=== PATIENT | male | born 1960 | race Caucasian/White ===

== ENCOUNTER 2021-02-25 11:15 | Emergency (ER) | payer OTHER ==
[~2021-02-25] VITALS: Ht 172.7 cm; Wt 91.2 kg
[2021-02-25 11:20] VITALS: BP 145/78
--- NOTE | 2021-02-25 11:26 | NUR ---
Patient ambulated to room 9 with a steady gait
--- NOTE | 2021-02-25 11:27 | NUR ---
Patient is a 60 y/o male c/c (L) eye floaters x3 days. Patient denies pain, injury or trauma to the eye. Patient has a history of (R) eye retinal detachment. Patient denies chest pain, SOB, fever, n/v/d. PMH: Headaches, pre diabetes Meds: None, per patient Allergies: None, per patient
--- NOTE | 2021-02-25 11:45 | NUR ---
ER MD Bhardwaj at the bed side evaluating patient
[2021-02-25 12:25] VITALS: BP 145/78
--- NOTE | 2021-02-25 12:25 | NUR ---
Patient discharged with v/s stable. Written and verbal after care instructions given and explained. Patient verbalized understanding. Ambulatory with steady gait. All questions addressed prior to discharge. Advised to follow up with [facility] with an appointment at 1500 today.
== END 2021-02-25 12:25 | disposition home or self-care (01) ==
LOC: MED 11:15
DX: H33.002 Unspecified retinal detachment with retinal break, left eye (principal)
CPT/HCPCS: 99284

== ENCOUNTER 2021-03-04 16:53 | Emergency (ER) | payer OTHER ==
[~2021-03-04] VITALS: Ht 154.9 cm; Wt 92.1 kg
[2021-03-04 17:03] VITALS: BP 159/108
--- NOTE | 2021-03-04 17:10 | NUR ---
60 YO M BIB SELF FOR C/O OF N/V X1, AND 08/22 SOL X1 DAY ASSOCIATED WITH HIGH BLOOD PRESSURE.PT STATES THAT HE HAS NEVER HAD HTN BUT TODAY HIS BP WAS REALLY HIGH. BP 142/91 AT BEDSIDE. PT REPORTS THAT HE HAD RETINAL DETACHMENT SURGERY ON MONDAY, STATES "I STILL HAVE GAS BUBBLE ON MY EYE AND AM UNABLE TO LAY FLAT." ERMD MADE AWARE. PT PLACED ON METAL DEALER/PULSE OX. BED LOCKED AND IN LOWEST POSITION. SIDE RAILS X1. MEDHX: RETINAL DETACHMENT
[2021-03-04] MEDS ORDERED: ONDANSETRON 4 MG/2 ML VIAL IVP ONE (17:35)
[2021-03-04] MEDS ORDERED: METOPROLOL 5 MG/5 ML VIAL IVP ONE (17:35)
[2021-03-04 17:51] LABS: BASOPHILS # (AUTO) 0.1 K/uL (0.00-0.22); BASOPHILS % (AUTO) 0.9 % (0.0-2.0); EOSINOPHILS % (AUTO) 0.2 % (0.0-4.0); HEMATOCRIT 45.6 % (36-52); HEMOGLOBIN 15.5 g/dL (12.0-18.0); LYMPHOCYTES # (AUTO) 1.6 K/uL (2.0-11.5); LYMPHOCYTES % (AUTO) 16.5 % (20.5-51.1); MEAN CORPUSCULAR HEMOGLOBIN 32 pg (27-31); MEAN CORPUSCULAR HGB CONC 34 g/dL (33-37); MEAN CORPUSCULAR VOLUME 95.4 fL (80-94); MONOCYTES # (AUTO) 0.4 K/uL (0.8-1.0); MONOCYTES % (AUTO) 4.3 % (1.7-9.3); NEUTROPHILS # (AUTO) 7.6 K/uL (1.8-7.7); NEUTROPHILS % (AUTO) 78.1 % (42.2-75.2); PLATELET COUNT (AUTO) 221 K/uL (140-450); RED BLOOD CELL COUNT(AUTO) 4.78 MIL/uL (4.20-6.10); RED CELL DISTRIBUTION WIDTH 13.3 % (11.6-13.7); WHITE BLOOD COUNT (AUTO) 9.8 K/uL (4.8-10.8)
--- NOTE | 2021-03-04 18:02 | NUR ---
ERMD AT BEDSIDE EVALUATING PT
[2021-03-04 18:08] LABS: ALBUMIN 3.8 g/dL (3.4-5.0); CARBON DIOXIDE 26.9 mmol/L (21-32); CREATININE 0.8 mg/dL (0.6-1.3); POTASSIUM 3.9 mmol/L (3.5-5.1); TOTAL BILIRUBIN 0.6 mg/dL (0.0-1.0)
[2021-03-04] MEDS ORDERED: MORPHINE SULFATE 4 MG/ML SYR IVP ONE ×2 (18:10→19:55)
[2021-03-04] MEDS ORDERED: NACL 0.9% 1,000 ML IV ONE (19:05)
--- NOTE | 2021-03-04 19:15 | NUR ---
REPORT RECEIVED BY KIM SOUZA FOR CONTINUITY OF CARE
--- NOTE | 2021-03-04 19:16 | NUR ---
REPORT GIVEN TO KIM WALKER. TRANSFER OF CARE AT THIS TIME.
--- NOTE | 2021-03-04 19:20 | NUR ---
pt laying on right side semi fowlers looking down due to upcoming surgery. pt comfortable, vss, pain has decreased to 3/10, IV on left forearm thats patent no redness noted, [id number], at bedside.
--- NOTE | 2021-03-04 19:52 | NUR ---
pt asking for pain medication due to headache going up to a 02/20. md notified
[2021-03-04] MEDS ORDERED: ONDANSETRON 4 MG ODT PO ONE (21:00)
[2021-03-04] MEDS ORDERED: ACET-8386 PO (21:10)
[2021-03-04] MEDS ORDERED: HYDR12.51 PO (21:10)
[2021-03-04] MEDS ORDERED: ONDA-24 SL (21:10)
[2021-03-04 21:24] VITALS: BP 133/84
--- NOTE | 2021-03-04 21:25 | NUR ---
Patient discharged with v/s stable. PAIN IS AT A 3/10 TOLERABLE FOR PATIENT. Written and verbal after care instructions given and explained. Patient alert, oriented and verbalized understanding of instructions. Ambulatory with steady gait. All questions addressed prior to discharge. ID band removed. Patient advised to follow up with PMD. Rx of HYDROCODON-ACETAMINOPHEN 5-325, HYDROCHLOROTHIAZIDE, AND ONDANSETRON given. Patient educated on indication of medication including possible reaction and side effects. Opportunity to ask questions provided and answered.
== END 2021-03-04 21:25 | disposition home or self-care (01) ==
LOC: MED 16:53
DX: I10 Essential (primary) hypertension (principal); R51.9 Headache, unspecified; Z79.899 Other long term (current) drug therapy
CPT/HCPCS: 36415; 80053; 84484; 85025; 96361; 96374; 96375; 96376; 99284; J2270; J2405; J7030; Q0162

== ENCOUNTER 2022-12-13 02:27 | Emergency (ER) | payer OTHER ==
[~2022-12-13] VITALS: Ht 170.2 cm; Wt 93.9 kg
[~2022-12-13 02:27] MED LIST: ACET-8905 PO; HYDR12.51 PO; ONDA-188 SL
[2022-12-13 02:33] VITALS: BP 157/85
--- NOTE | 2022-12-13 02:41 | NUR ---
Patient taken to bed 12.
--- NOTE | 2022-12-13 02:46 | NUR ---
pt has pain right above the hip 05/22. alert and oriented x 4. follow commands. ambulatory
--- NOTE | 2022-12-13 02:49 | NUR ---
Dr. Tinajero examining patient.
[2022-12-13] MEDS ORDERED: KETOROLAC 15 MG/ML VIAL IVP ONE (02:55)
[2022-12-13 03:03] LABS: BASOPHILS # (AUTO) 0.3 K/uL (0.00-0.22); BASOPHILS % (AUTO) 2.6 % (0.0-2.0); EOSINOPHILS # (AUTO) 0.1 K/uL (0-0.4); EOSINOPHILS % (AUTO) 0.5 % (0.0-4.0); HEMATOCRIT 41.9 % (36-52); HEMOGLOBIN 14.8 g/dL (12.0-18.0); LYMPHOCYTES # (AUTO) 1.6 K/uL (2.0-11.5); LYMPHOCYTES % (AUTO) 16.1 % (20.5-51.1); MEAN CORPUSCULAR HEMOGLOBIN 33 pg (27-31); MEAN CORPUSCULAR HGB CONC 35 g/dL (33-37); MEAN CORPUSCULAR VOLUME 93.8 fL (80-94); MONOCYTES # (AUTO) 0.6 K/uL (0.8-1.0); MONOCYTES % (AUTO) 5.7 % (1.7-9.3); NEUTROPHILS # (AUTO) 7.6 K/uL (1.8-7.7); NEUTROPHILS % (AUTO) 75.1 % (42.2-75.2); PLATELET COUNT (AUTO) 214 K/uL (140-450); RED BLOOD CELL COUNT(AUTO) 4.46 MIL/uL (4.20-6.10); RED CELL DISTRIBUTION WIDTH 13.7 % (11.6-13.7); WHITE BLOOD COUNT (AUTO) 10.1 K/uL (4.8-10.8)
[2022-12-13 03:27] LABS: ALBUMIN 3.9 g/dL (3.4-5.0); ANION GAP 12.2 (8-16); CARBON DIOXIDE 27.6 mmol/L (21-32); CREATININE 0.8 mg/dL (0.6-1.3); POTASSIUM 3.8 mmol/L (3.5-5.1); TOTAL BILIRUBIN 0.3 mg/dL (0.0-1.0)
[2022-12-13] MEDS ORDERED: NOREPINEPHRINE 4 MG in DEXTROSE 5% 250 ML IV ONE (04:15)
[2022-12-13 05:22] LABS: APPEARANCE,URINE CLEAR (CLEAR); COLOR,URINE YELLOW (YELLOW)
[2022-12-13 05:23] LABS: BILIRUBIN,URINE NEGATIVE (NEGATIVE); BLOOD, URINE NEGATIVE (NEGATIVE); LEUKOCYTE ESTERASE ,URINE NEGATIVE (NEGATIVE); NITRITE, URINE POSITIVE (NEGATIVE); UGLUCOSE NEGATIVE (NEGATIVE)
[2022-12-13 05:24] LABS: RBC,URINE 11-20 (MOD) /HPF (0-5); WBC,URINE 0-5 /HPF (0-5)
[2022-12-13] MEDS ORDERED: IBUP-2213 PO (05:40)
[2022-12-13] MEDS ORDERED: CEFP200T20 PO (05:40)
[2022-12-13 06:02] VITALS: BP 130/85
--- NOTE | 2022-12-13 06:04 | NUR ---
Patient discharged with v/s stable. Written and verbal after care instructions given and explained. Patient verbalized understanding. Ambulatory with steady gait. All questions addressed prior to discharge. Advised to follow up with PMD. pt left with her belongings
== END 2022-12-13 05:55 | disposition home or self-care (01) ==
LOC: MED 02:27
DX: N20.0 Calculus of kidney (principal); N39.0 Urinary tract infection, site not specified; R11.0 Nausea; Z98.890 Other specified postprocedural states; Z79.899 Other long term (current) drug therapy
CPT/HCPCS: 36415; 74176; 80053; 81001; 83690; 85025; 96374; 99285; J1885